=== PATIENT | female | born 1980 | race Two or more races ===

== ENCOUNTER 2021-09-01 15:34 | Inpatient (IN) | payer OTHER ==
[~2021-09-01] VITALS: Ht 152.4 cm; Wt 57.2 kg
[2021-09-01] MEDS ORDERED: ORILISSA150 MG PO (16:22)
[2021-09-01] MEDS ORDERED: PEPCID AC20 MG PO (16:24)
[2021-09-01] MEDS ORDERED: CHLORDIAZEPOXI1 EACH PO (16:24)
[2021-09-01] MEDS ORDERED: LEVSIN/SL0.125 MG SL (16:24)
--- NOTE | 2021-09-01 16:25 | NUR ---
SE RECIBE PTE ALERTA Y ORIENTADA X3,REFIERE TENER DOLOR ABDOMINAL FUE A NINO MEDICO EL CUAL LE RECETO MEDICAMENTOS HA REFIERE TENER COLITIS,ENTERITIS,NINO DR.JOSE ANN.
--- NOTE | 2021-09-01 17:12 | NUR ---
EVALUA PTE. SE EDUCA A PTE SOBRE [place] MEDICO. PTE REFIERE COMPRENDER. SE COLECTAN MUESTRAS DE LABORATORIO BAJO MEDIDAS ASEPTICAS. SE ADMINISTRAN MEDICAMENTOS TALON ORDEN MEDICA. SE NOTIFICA CT.
[2021-09-02] MEDS ORDERED: BUPROPION XL150 MG (10:28)
[2021-09-02] MEDS ORDERED: DICLOFENAC SODI75 MG (10:28)
[2021-09-02] MEDS ORDERED: MONTELUKAST SOD10 MG (10:28)
[2021-09-02] MEDS ORDERED: METRONIDAZOLE500 MG (10:28)
[2021-09-02] MEDS ORDERED: BACLOFEN20 MG (10:28)
[2021-09-02] MEDS ORDERED: MUPIROCIN22 GM (10:28)
[2021-09-02] MEDS ORDERED: CLONAZEPAM0.5 MG (10:29)
[2021-09-02] MEDS ORDERED: MIRTAZAPINE15 MG (10:29)
[2021-09-02] MEDS ORDERED: RESTORIL30 MG (10:29)
[2021-09-07] MEDS ORDERED: CIPRO500 MG PO (08:09)
[2021-09-07] MEDS ORDERED: INTESTINEX680 M1 PO (08:09)
[2021-09-07] MEDS ORDERED: PROTONIX40 MG PO (08:10)
[2021-09-07] MEDS ORDERED: DICY20TA PO (08:10)
== END 2021-09-07 13:47 | disposition home or self-care (01) | DRG 392 ==
LOC: ER 15:34 → SURG 22:29
PROVIDERS: ADMIT Surgery; ATTEND Surgery
PROC: BW2110Z Computerized Tomography (CT Scan) of Abdomen and Pelvis using Low Osmolar Contrast, Unenhanced and Enhanced (ICD-10-PCS; 2021-09-01)
PROC: 02HV33Z Insertion of Infusion Device into Superior Vena Cava, Percutaneous Approach (ICD-10-PCS; 2021-09-02)
PROC: 0DBH8ZX Excision of Cecum, Via Natural or Artificial Opening Endoscopic, Diagnostic (ICD-10-PCS; principal; 2021-09-06)
PROC: 0DBB8ZX Excision of Ileum, Via Natural or Artificial Opening Endoscopic, Diagnostic (ICD-10-PCS; 2021-09-06)
PROC: 3E0F7SF Introduction of Other Gas into Respiratory Tract, Via Natural or Artificial Opening (ICD-10-PCS; 2021-09-06)
DX: A09 Infectious gastroenteritis and colitis, unspecified (principal); N80.5 Endometriosis of intestine; Z20.822 Contact with and (suspected) exposure to COVID-19

== ENCOUNTER 2021-10-29 05:35 | Emergency (ER) | payer OTHER ==
[~2021-10-29] VITALS: Ht 152.4 cm; Wt 54.0 kg
[~2021-10-29 05:35] MED LIST: BACLOFEN20 MG; BUPROPION XL150 MG; CHLORDIAZEPOXI1 EACH PO; CIPRO500 MG PO; CLONAZEPAM0.5 MG; DICLOFENAC SODI75 MG; DICY20TA PO; INTESTINEX680 M1 PO; LEVSIN/SL0.125 MG SL; METRONIDAZOLE500 MG; MIRTAZAPINE15 MG; MONTELUKAST SOD10 MG; MUPIROCIN22 GM; ORILISSA150 MG PO; PEPCID AC20 MG PO; PROTONIX40 MG PO; RESTORIL30 MG
== END 2021-10-29 14:06 | disposition home or self-care (01) ==
LOC: ER 05:35
DX: N39.0 Urinary tract infection, site not specified (principal); R11.10 Vomiting, unspecified
CPT/HCPCS: 74160; Q9965

== ENCOUNTER 2023-03-16 15:38 | Inpatient (IN) | payer OTHER ==
[~2023-03-16] VITALS: Ht 152.4 cm; Wt 74.8 kg
[2023-03-16] MEDS ORDERED: CYMBALTA20 MG (15:44)
[2023-03-16] MEDS ORDERED: MAGNESIUM200 MG (15:44)
[2023-03-19] MEDS ORDERED: SERTRALINE HCL25 MG (16:25)
[2023-03-19] MEDS ORDERED: DULOXETINE HCL20 MG (16:25)
[2023-03-19] MEDS ORDERED: NORETHINDRONE AC5 MG (16:25)
[2023-03-19] MEDS ORDERED: ORILISSA150 MG (16:25)
[2023-03-21] MEDS ORDERED: INTESTINEX680 M1 PO (08:25)
[2023-03-21] MEDS ORDERED: PEPCID AC20 MG PO (08:25)
[2023-03-21] MEDS ORDERED: DICY20TA PO (08:26)
[2023-03-21] MEDS ORDERED: TRAM1TAB98 PO (08:26)
== END 2023-03-21 13:29 | disposition home or self-care (01) | DRG 389 ==
LOC: ER 15:38 → MEDJ 19:58
PROVIDERS: ADMIT Surgery; ATTEND Surgery
PROC: 02HV33Z Insertion of Infusion Device into Superior Vena Cava, Percutaneous Approach (ICD-10-PCS; principal; 2023-03-17)
PROC: BW21YZZ Computerized Tomography (CT Scan) of Abdomen and Pelvis using Other Contrast (ICD-10-PCS; 2023-03-17)
DX: K56.699 Other intestinal obstruction unspecified as to partial versus complete obstruction (principal); A04.72 Enterocolitis due to Clostridium difficile, not specified as recurrent; E86.0 Dehydration; D64.9 Anemia, unspecified; N80.50 Endometriosis of intestine, unspecified; J45.909 Unspecified asthma, uncomplicated; Z20.822 Contact with and (suspected) exposure to COVID-19